=== PATIENT | male | born 1990 | race Caucasian/White ===

== ENCOUNTER 2016-05-14 18:03 | Emergency (ER) | payer SELFPAY ==
[2016-05-14 19:28] VITALS: BMI 35.2
[2016-05-14] MEDS ORDERED: Sodium Chloride 0.9% 1,000 ML IV STA (19:29)
--- NOTE | 2016-05-14 19:36 | ED PDOC ---
Arrival/HPI - General Historian: Patient <Spencer Guadarrama - Last Filed: 05/14/16 23:21> <Sp Nelson - Last Filed: 05/15/16 06:13> - General Chief Complaint: Abdominal Pain Time Seen by Provider: 05/14/16 18:05 - History of Present Illness Narrative History of Present Illness (Text): 05/14/16 19:32 25 y/o male, no pmh, nkda, c/o rt. flank and lower abdominal pain x 2 days. Pt. stated that he has rt. upper quadrant pain radiating to the rt. lower abdomen, aggravated by movement, no hematuria, no urinary symptoms, no dizziness, no night sweat, no palpitation, no headache, no rash, no fatigue or lethargic, no other medical or psychological complaints. (Spencer Guadarrama) Past Medical History - Provider Review Nursing Documentation Reviewed: Yes - Infectious Disease Hx of Infectious Diseases: None - Past Medical History Past Medical History: No Previous - Psychiatric Hx Depression: No Hx Substance Use: No - Surgical History Hx Appendectomy: Yes - Anesthesia Hx Anesthesia: No - Suicidal Assessment Feels Threatened In Home Enviroment: No <Spencer Guadarrama - Last Filed: 05/14/16 23:21> Family/Social History - Physician Review Nursing Documentation Reviewed: Yes Family/Social History: Unknown Family HX Smoking Status: Never Smoked Hx Alcohol Use: Yes Frequency of alcohol use: Socially Hx Substance Use: No <Spencer Guadarrama - Last Filed: 05/14/16 23:21> Family/Social History: No Known Family HX <Sp Nelson - Last Filed: 05/15/16 06:13> Allergies/Home Meds <Spencer Guadarrama - Last Filed: 05/14/16 23:21> <Sp Nelson - Last Filed: 05/15/16 06:13> Allergies/Adverse Reactions: Allergies No Known Allergies Allergy (Verified 05/14/16 19:08) Review of Systems - Review of Systems Constitutional: absent: Fatigue Eyes: absent: Vision Changes Respiratory: absent: SOB, Cough Cardiovascular: absent: Chest Pain Gastrointestinal: Abdominal Pain. absent: Nausea, Vomiting Musculoskeletal: Back Pain. absent: Arthralgias, Neck Pain, Joint Swelling, Myalgias Skin: absent: Rash, Pruritis Neurological: absent: Headache, Dizziness, Focal Weakness, Gait Changes, Speech Changes, Facial Droop, Disequilibrium, Seizure Psychiatric: absent: Anxiety, Depression, Suicidal Ideation <Spencer Guadarrama - Last Filed: 05/14/16 23:21> Physical Exam Pain Distress: Moderate - Systems Exam Head: Present: Atraumatic, Normocephalic Pupils: Present: PERRL Extroacular Muscles: Present: EOMI Conjunctiva: Present: Normal Mouth: Present: Moist Mucous Membranes Neck: Present: Normal Range of Motion Respiratory/Chest: Present: Clear to Auscultation, Good Air Exchange. No: Respiratory Distress, Accessory Muscle Use Cardiovascular: Present: Regular Rate and Rhythm, Normal S1, S2. No: Murmurs Abdomen: Present: Tenderness (+rt. upper quadrant. ), Normal Bowel Sounds. No: Distention, Peritoneal Signs, Rebound, Guarding Back: Present: Normal Inspection, CVA Tenderness (+rt. CVA tenderness) Upper Extremity: Present: Normal Inspection. No: Cyanosis, Edema Lower Extremity: Present: Normal Inspection. No: Edema Neurological: Present: GCS=15, CN II-XII Intact, Speech Normal Skin: Present: Warm, Dry, Normal Color. No: Rashes Psychiatric: Present: Alert, Oriented x 3, Normal Insight, Normal Concentration <Spnecer Guadarrama - Last Filed: 05/14/16 23:21> Vital Signs Temp Pulse Resp BP Pulse Ox 05/14/16 23:20 98.7 F 76 18 116/72 99 05/14/16 19:04 84 16 121/77 97 05/14/16 19:01 99.1 F Medical Decision Making - RAD Interpretation Co Founder And Cto: Radiologist <Spencer Guadarrama - Last Filed: 05/14/16 23:21> <Sp Nelson - Last Filed: 05/15/16 06:13> ED Course and Treatment: 05/14/16 19:37 -labs -CT abdominal, sonogram, chest x-ray -IVF/toradol -Observe and reassess 05/14/16 23:22 -CT abdomen show fatty hernia with no incarceration, no other active acute findings. -Gallbladder show no stone but there is fatty liver, advised the patient on low fat diet and stop drinking alcohol with outpatient GI follow up. -Chest x-ray show no active disease -Labs are non-significant with no elevation of wbc -UA show no acute findings. -Pain resolved with the IV medication. -I discussed all the labs and radiology results with the patient, advised outpatient GI and general surgeon follow up. -Discharge home with naproxen, follow up with your own pmd and GI/general surgeon within 2 days, return to the ER for any new or worsening signs or symptoms. (Spencer Guadarrama) - Lab Interpretations Lab Results: 05/14/16 20:15 05/14/16 20:15 Lab Results 05/14/16 22:50: Urine Color Yellow, Urine Appearance Clear, Urine pH 6.5, Ur Specific [place] 1.010, Urine Protein Negative, Urine Glucose (UA) Negative, Urine Ketones Negative, Urine Blood Negative, Urine Nitrate Negative, Urine Bilirubin Negative, Urine Urobilinogen 0.2, Ur Leukocyte Esterase Negative 05/14/16 20:15: WBC 9.3, RBC 4.86, Hgb 14.5, Hct 42.8, MCV 88.1, MCH 29.8, MCHC 33.9, RDW 12.5, Plt Count 213, MPV 9.6, Gran % 67.1, Lymph % (Auto) 25.1, [place] % (Auto) 5.5, Eos % (Auto) 2.1, Baso % (Auto) 0.2, Gran # 6.22, Lymph # 2.3, [place] # 0.5, Eos # 0.2, Baso # 0.02, Sodium 142, Potassium 4.3, Chloride 103, Carbon Dioxide 29, Anion Gap 14, BUN 13, Creatinine 0.9, Est GFR ( Amer) > 60, Est GFR (Non-Af Amer) > 60, Random Glucose 95, Calcium 9.1, Total Bilirubin 0.5, AST 40, ALT 56, Alkaline Phosphatase 105, Total Protein 7.6, Albumin 4.1, Globulin 3.5, Albumin/Globulin Ratio 1.2, Lipase 49 - RAD Interpretation Radiology Orders: 05/14/16 19:29 ABD & PELVIS IV CONTRAST ONLY [CT] Stat GALL BLADDER [US] Stat 05/14/16 19:30 CHEST ONE VIEW [RAD] Stat Gallbladder sonogram: FINDINGS: Liver: Fatty infiltration. No mass. No intrahepatic bile duct dilation. Gallbladder: Unremarkable. No gallstones. Common bile duct: Unremarkable as visualized. No stones. No dilation. Pancreas: Unremarkable as visualized. Right kidney: Unremarkable. No stones. No solid mass. No hydronephrosis. IMPRESSION: Fatty liver. Otherwise unremarkable exam. Thank you for allowing us to participate in the care of your patient. Dictated and Authenticated by: Maikel Benjamin MD 05/14/2016 9:39 PM Eastern Time ([employer] [facility] [employer]) CT Abdomen and pelvis ABDOMEN: Liver: unremarkable Gallbladder and bile ducts: unremarkable Pancreas: unremarkable Spleen: Spleen is unremarkable. There is an accessory spleen in the left upper quadrant. Adrenals: unremarkable Kidneys and ureters: unremarkable Stomach and bowel: Stomach is almost empty. Rotation is normal. There is no obstruction. There is mild fatty infiltration of the distal ileal wall. Appendix is absent. There is no pericecal inflammation.Colon is incompletely distended which limits evaluation.There is diverticulosis. Appendix: See stomach and bowel PELVIS: Bladder: unremarkable Reproductive: Seminal vesicles and prostate are unremarkable. ABDOMEN and PELVIS: Intraperitoneal space: There is no free air or free fluid. Bones/joints: There is L5 spondylolysis with grade 1-2 spondylolisthesis. There are degenerative changes L5/S1. There is small Schmorl's nodes at multiple levels. Soft tissues: There is a fat-containing umbilical hernia. Vasculature: Vascular structures are unremarkable. Lymph nodes: There is no pathologic adenopathy. IMPRESSION: No renal or ureteral stones or hydronephrosis; no acute solid visceral or bowel abnormality; minimal fatty infiltration of the terminal ileal wall suggest prior enteritis Additional findings as described above. Thank you for allowing us to participate in the care of your patient. Dictated and Authenticated by: Jaz Yap MD 05/14/2016 10:25 PM Eastern Time ([employer] [facility] [employer]) Chest x-ray (Spencer Guadarrama) - Medication Orders Current Medication Orders: Discontinued Medications Sodium Chloride (Sodium Chloride 0.9%) 1,000 mls @ 999 mls/hr IV .Q1H1M STA Stop: 05/14/16 20:29 Last Admin: 05/14/16 20:15 Dose: 999 MLS/HR eMAR Start Stop Document 05/14/16 20:15 [facility] [place] (Rec: 05/14/16 20:15 [place] [id number]) Intravenous Solution Start Date 05/14/16 Start Time 20:15 End Date 05/14/16 End time 21:15 Total Infusion Time 60 Iohexol (Omnipaque 350 100 Ml) Confirm Administered Dose 350 mg .ROUTE .STK-MED ONE Stop: 05/14/16 21:14 Ketorolac Tromethamine (Toradol) 30 mg IVP STAT STA Stop: 05/14/16 19:30 Last Admin: 05/14/16 20:15 Dose: 30 MG IVP Administration Document 05/14/16 20:15 [facility] [place] (Rec: 05/14/16 20:15 [place] [id number]) Charges for Administration # of IVP Administrations 1 - PA / BRANDING MACHINE TENDER / Resident Statement MILAGROS has reviewed & agrees with the documentation as recorded. <Spencer Guadarrama - Last Filed: 05/14/16 23:21> - PA / BRANDING MACHINE TENDER / Resident Statement MILAGROS has reviewed & agrees with the documentation as recorded. <Sp Nelson - Last Filed: 05/15/16 06:13> Disposition/Present on Arrival - Present on Arrival History of DVT/PE: No History of Uncontrolled Diabetes: No Urinary Catheter: No History of Decub. Ulcer: No History Surgical Site Infection Following: None - Disposition Disposition Time: 22:34 Patient Plan: Discharge <Spencer Guadarrama Marcelino - Last Filed: 05/14/16 23:21> - Present on Arrival Any Indicators Present on Arrival: No - Disposition Have Diagnosis and Disposition been Completed?: Yes <Sp Nelson - Last Filed: 05/15/16 06:13> - Disposition Diagnosis: Fatty liver, Hernia Disposition: HOME/ ROUTINE Condition: IMPROVED Additional Instructions: Discharge home with naproxen, follow up with your own pmd and GI/general surgeon within 2 days, return to the ER for any new or worsening signs or symptoms. Prescriptions: Naproxen 500 mg PO BID PRN #20 tab PRN Reason: Other Referrals: Rl Anaya, [Primary Care Provider] - Follow up with primary Avery Merchant MD [Staff Provider] - Follow up with primary Miracle SOLER,MD Mckenna [Medical Doctor] - Follow up with primary [facility] [place] [Outside] - Follow up with primary Forms: WORK NOTE
[2016-05-14 20:21] LABS: ADD MANUAL DIFF? NO
[2016-05-14 20:34] LABS: BASO # 0.02 K/mm3 (0.0-2.0); BASO % 0.2 % (0.0-3.0); EOS # 0.2 (0.0-0.7); EOS % 2.1 % (1.5-5.0); GRAN # 6.22 (1.4-6.5); GRAN % 67.1 % (50.0-68.0); HEMATOCRIT 42.8 % (42.0-52.0); LYMPH # 2.3 (1.2-3.4); LYMPH % 25.1 % (22.0-35.0); MEAN CELL VOLUME 88.1 fL (80.0-105.0); MEAN CORPUSCULAR HEMOGLOBIN 29.8 pg (25.0-35.0); MEAN CORPUSCULAR HGB CONC 33.9 g/dl (31.0-37.0); MEAN PLATELET VOLUME 9.6 fl (7.0-11.0); MONO # 0.5 (0.1-0.6); MONO % 5.5 % (1.0-6.0); PLATELET COUNT 213 10^3/uL (120.0-450.0); RED CELL DISTRIBUTION WIDTH 12.5 % (11.5-14.5); WHITE BLOOD COUNT 9.3 10^3/ul (4.5-11.0)
[2016-05-14 20:48] LABS: ALB/GLOB RATIO 1.2 (1.1-1.8); ALKALINE PHOSPHATASE 105 U/L (38-133); ALT/SGPT 56 U/L (7-56); AST/SGOT 40 U/L (15-59); BILIRUBIN,TOTAL 0.5 mg/dL (0.2-1.3); BLOOD UREA NITROGEN 13 mg/dL (7-21); CALCIUM 9.1 mg/dL (8.4-10.5); CARBON DIOXIDE 29 mmol/L (21-33); CHLORIDE 103 mmol/L (98-107); GFR AFRICAN-AMERICAN > 60; GLUCOSE,RANDOM 95 mg/dL (70-110); LIPASE 49 U/L (23-300); POTASSIUM 4.3 mmol/L (3.6-5.0); SODIUM 142 mmol/L (132-148); TOTAL PROTEIN 7.6 g/dL (5.8-8.3)
[2016-05-14] MEDS ORDERED: Iohexol 350 MG/100 ML VIAL ONE (21:13)
--- NOTE | 2016-05-14 22:25 | CT ---
EXAM: CT Abdomen and Pelvis With Intravenous Contrast. CLINICAL HISTORY: 25 years old, male; Pain; Abdominal pain; Flank; Right; Prior surgery; Surgery date: 6+ months; Surgery type: Ap, hernia repair; Additional info: Rt. Flank and lower abdominal pain TECHNIQUE: Axial computed tomography images of the abdomen and pelvis with intravenous contrast. This CT exam was performed using one or more of the following dose reduction techniques: automated exposure control, adjustment of the mA and/or kV according to patient size, and/or use of iterative reconstruction technique. Coronal and sagittal reformatted images were created and reviewed. CONTRAST: 95 mL of OMNI 350 administered intravenously. EXAM DATE/TIME: 05/14/2016 7:29 PM COMPARISON: There are no prior studies for comparison. FINDINGS: Lower thorax: Heart size is normal. There is atelectasis and scarring at the lung bases. ABDOMEN: Liver: unremarkable Gallbladder and bile ducts: unremarkable Pancreas: unremarkable Spleen: Spleen is unremarkable. There is an accessory spleen in the left upper quadrant. Adrenals: unremarkable Kidneys and ureters: unremarkable Stomach and bowel: Stomach is almost empty. Rotation is normal. There is no obstruction. There is mild fatty infiltration of the distal ileal wall. Appendix is absent. There is no pericecal inflammation.Colon is incompletely distended which limits evaluation.There is diverticulosis. Appendix: See stomach and bowel PELVIS: Bladder: unremarkable Reproductive: Seminal vesicles and prostate are unremarkable. ABDOMEN and PELVIS: Intraperitoneal space: There is no free air or free fluid. Bones/joints: There is L5 spondylolysis with grade 1-2 spondylolisthesis. There are degenerative changes L5/S1. There is small Schmorl's nodes at multiple levels. Soft tissues: There is a fat-containing umbilical hernia. Vasculature: Vascular structures are unremarkable. Lymph nodes: There is no pathologic adenopathy. IMPRESSION: No renal or ureteral stones or hydronephrosis; no acute solid visceral or bowel abnormality; minimal fatty infiltration of the terminal ileal wall suggest prior enteritis Additional findings as described above.
[2016-05-14 23:05] LABS: PH,URINE 6.5 (4.7-8.0); URINE BILIRUBIN NEGATIVE (NEGATIVE); URINE BLOOD NEGATIVE (NEGATIVE); URINE GLUCOSE (UA) NEGATIVE (NEGATIVE); URINE KETONE NEGATIVE (NEGATIVE); URINE LEUKOCYTE ESTERASE NEGATIVE Leu/uL (NEGATIVE); URINE PROTEIN NEGATIVE mg/dL (<30 mg/dL); URINE UROBILINOGEN 0.2 E.U./dL (<1 E.U./dL)
[2016-05-14 23:14] LABS: URINE APPEARANCE CLEAR (CLEAR); URINE COLOR YELLOW (YELLOW)
[2016-05-15 02:26] VITALS: BP 116/72; PULSE 76; RESP 18; TEMP 98.7; O2SAT 99
--- NOTE | 2016-05-15 08:03 | US ---
HISTORY: Right flank pain. COMPARISON: May 14, 2016. CT abdomen and pelvis. TECHNIQUE: Sonographic evaluation of the right upper quadrant of the abdomen. FINDINGS: LIVER: Measures 14.6 cm in length. Hepatopedal blood flow. Fatty infiltration manifest ultrasonographically as increased echogenicity of the liver parenchyma. No mass. No intrahepatic bile duct dilatation. GALLBLADDER: Unremarkable. No gallstones. COMMON BILE DUCT: Measures 4.3 mm. No stones. No dilatation. PANCREAS: Unremarkable as visualized. No mass. No ductal dilatation. RIGHT KIDNEY: Measures 9.5 x 6.1 cm in length. Normal echogenicity. No calculus, mass, or hydronephrosis. AORTA: No aneurysmal dilatation. IVC: Unremarkable. OTHER FINDINGS: None . IMPRESSION: No acute findings related to/accounting for the clinical presentation. Additional benign and/or incidental findings described above.
--- NOTE | 2016-05-15 08:42 | RAD ---
PROCEDURE: CHEST RADIOGRAPH, 1 VIEW HISTORY: medical clearance COMPARISON: Comparison is made to the previous study dated 02/06/2016 FINDINGS: LUNGS: No evidence of new infiltrate or consolidation in the lungs. PLEURA: No pneumothorax or pleural fluid seen. CARDIOVASCULAR: Normal. OSSEOUS STRUCTURES: No significant abnormalities. VISUALIZED UPPER ABDOMEN: Normal. OTHER FINDINGS: None. IMPRESSION: No active disease.
== END 2016-05-14 23:30 | disposition home or self-care (01) ==
LOC: ED 18:03
DX: K76.0 Fatty (change of) liver, not elsewhere classified (principal); K42.9 Umbilical hernia without obstruction or gangrene
CPT/HCPCS: 71010; 74177; 76705; 80053; 81003; 83690; 85025; 96361; 96374; 99284; J1885; J7040; Q9967

== ENCOUNTER 2016-07-18 13:39 | Emergency (ER) | payer MEDICAID, OTHER ==
[2016-07-18 13:39] VITALS: BMI 35.2
[2016-07-18 13:58] VITALS: TEMP 98.1
[2016-07-18 14:28] LABS: ADD MANUAL DIFF? NO
[2016-07-18 14:29] LABS: URINE APPEARANCE CLEAR (CLEAR); URINE BILIRUBIN NEGATIVE (NEGATIVE); URINE BLOOD NEGATIVE (NEGATIVE); URINE COLOR YELLOW (YELLOW); URINE GLUCOSE (UA) NEGATIVE (NEGATIVE); URINE KETONE NEGATIVE (NEGATIVE); URINE LEUKOCYTE ESTERASE NEGATIVE Leu/uL (NEGATIVE); URINE PROTEIN NEGATIVE mg/dL (<30 mg/dL); URINE UROBILINOGEN 0.2 E.U./dL (<1 E.U./dL)
[2016-07-18 14:35] LABS: BASO # 0.03 K/mm3 (0.0-2.0); BASO % 0.5 % (0.0-3.0); EOS # 0.1 (0.0-0.7); EOS % 1.5 % (1.5-5.0); GRAN % 61.2 % (50.0-68.0); HEMATOCRIT 42.5 % (42.0-52.0); LYMPH # 1.9 (1.2-3.4); MEAN CORPUSCULAR HEMOGLOBIN 30.4 pg (25.0-35.0); MEAN CORPUSCULAR HGB CONC 35.8 g/dl (31.0-37.0); MEAN PLATELET VOLUME 9.5 fl (7.0-11.0); MONO # 0.4 (0.1-0.6); MONO % 5.8 % (1.0-6.0); PLATELET COUNT 220 10^3/uL (120.0-450.0); RED CELL DISTRIBUTION WIDTH 12.5 % (11.5-14.5)
[2016-07-18 14:49] LABS: ALB/GLOB RATIO 1.3 (1.1-1.8); ALKALINE PHOSPHATASE 95 U/L (38-133); ALT/SGPT 46 U/L (7-56); AST/SGOT 31 U/L (15-59); BILIRUBIN,TOTAL 0.6 mg/dL (0.2-1.3); BLOOD UREA NITROGEN 12 mg/dL (7-21); CALCIUM 9.3 mg/dL (8.4-10.5); CARBON DIOXIDE 25 mmol/L (21-33); CHLORIDE 105 mmol/L (98-107); GFR AFRICAN-AMERICAN > 60; GLUCOSE,RANDOM 126 mg/dL (70-110); MAGNESIUM 1.8 mg/dL (1.7-2.2); POTASSIUM 3.8 mmol/L (3.6-5.0); SODIUM 138 mmol/L (132-148); TOTAL PROTEIN 7.4 g/dL (5.8-8.3)
--- NOTE | 2016-07-18 14:57 | RAD ---
HISTORY: chest pain COMPARISON: 05/14/2016 FINDINGS: LUNGS: No active pulmonary disease. PLEURA: No significant pleural effusion identified, no pneumothorax apparent. CARDIOVASCULAR: Normal. OSSEOUS STRUCTURES: No significant abnormalities. VISUALIZED UPPER ABDOMEN: Normal. OTHER FINDINGS: None. IMPRESSION: No active disease.
[2016-07-18 15:00] LABS: TROPONIN I < 0.01 ng/mL
[2016-07-18 16:15] VITALS: RESP 16; O2SAT 100
--- NOTE | 2016-07-18 16:38 | ED PDOC ---
Arrival/HPI - General Chief Complaint: Chest Pain Time Seen by Provider: 07/18/16 14:09 Historian: Patient - History of Present Illness Narrative History of Present Illness (Text): 07/18/16 16:43 25 year old male presents to the emergency department with intermittent chest pain for the past couple of years. Patient states he has had this evaluated in the ER multiple times. Currently patient is pain free. Never had shortness of breath. Patient reports cough, no phlegm. No fever, no recent travel. No family cardiac history. Time/Duration: Other (> years) Symptom Onset: Gradual Symptom Course: Intermittent Modifying Factors (Text): None Associated Symptoms (Text): None Past Medical History - Provider Review Nursing Documentation Reviewed: Yes - Infectious Disease Hx of Infectious Diseases: None - Past Medical History Past Medical History: No Previous - Cardiac Hx Cardiac Disorders: No - Psychiatric Hx Depression: No Hx Substance Use: Yes - Surgical History Hx Appendectomy: Yes - Anesthesia Hx Anesthesia: Yes Hx Anesthesia Reactions: No Hx Malignant Hyperthermia: No - Suicidal Assessment Feels Threatened In Home Enviroment: No Family/Social History - Physician Review Nursing Documentation Reviewed: Yes Family/Social History: Unknown Family HX Smoking Status: Never Smoked Hx Alcohol Use: Yes Hx Substance Use: Yes Allergies/Home Meds Allergies/Adverse Reactions: Allergies No Known Allergies Allergy (Verified 07/18/16 14:06) Review of Systems - Physician Review All systems were reviewed & negative as marked: Yes - Review of Systems Constitutional: absent: Fevers Respiratory: Cough. absent: SOB, Sputum Cardiovascular: Chest Pain (resolved) Physical Exam Vital Signs Reviewed: Yes Vital Signs Temp Pulse Pulse Resp BP BP Pulse Ox 07/18/16 16:15 71 16 127/71 100 07/18/16 16:14 70 16 132/73 100 07/18/16 15:01 71 18 133/71 97 07/18/16 13:57 98.1 F 76 18 135/76 97 07/18/16 13:53 76 135/76 Temperature: Afebrile Blood Pressure: Normal Pulse: Regular Respiratory Rate: Normal Appearance: Positive for: Well-Appearing, Non-Toxic, Comfortable Pain Distress: None Mental Status: Positive for: Alert and Oriented X 3 - Systems Exam Head: Present: Atraumatic, Normocephalic Pupils: Present: PERRL Extroacular Muscles: Present: EOMI Conjunctiva: Present: Normal Mouth: Present: Moist Mucous Membranes Neck: Present: Normal Range of Motion Respiratory/Chest: Present: Clear to Auscultation, Good Air Exchange. No: Respiratory Distress, Accessory Muscle Use Cardiovascular: Present: Regular Rate and Rhythm, Normal S1, S2. No: Murmurs Abdomen: Present: Normal Bowel Sounds. No: Tenderness, Distention, Peritoneal Signs Back: Present: Normal Inspection Upper Extremity: Present: Normal Inspection. No: Cyanosis, Edema Lower Extremity: Present: Normal Inspection. No: Edema Neurological: Present: GCS=15, CN II-XII Intact, Speech Normal Skin: Present: Warm, Dry, Normal Color. No: Rashes Psychiatric: Present: Alert, Oriented x 3, Normal Insight, Normal Concentration Medical Decision Making ED Course and Treatment: Impression: 25 year old male presents to the emergency department with intermittent chest pain for the past couple of years. Differential Diagnosis included but are not limited to: Nonspecific chest pain Plan: -- EKG, Chest X-ray -- Toradol -- Labs -- Reassess and disposition Prior Visits: Notes and results from previous visits were reviewed. Patient last seen in the ED on 05/14/16 for abdominal pain and discharged home. Progress Notes: Patient states he feels better after pain medication. Patient is stable for discharge. Patient was instructed to follow up with physician/clinic in 1-2 days or return if symptoms persist/worsen or new concerning symptoms arise. - Lab Interpretations Lab Results: 07/18/16 13:54 07/18/16 13:54 Lab Results 07/18/16 15:30: Urine Opiates Screen Negative, Urine Methadone Screen Negative, Ur Barbiturates Screen Negative, Ur Phencyclidine Scrn Negative, Ur Amphetamines Screen Negative, U Benzodiazepines Scrn Negative, U Oth Cocaine Metabols Negative, U Cannabinoids Screen Negative 07/18/16 14:15: Urine Color Yellow, Urine Appearance Clear, Urine pH 6.0, Ur Specific [place] 1.025, Urine Protein Negative, Urine Glucose (UA) Negative, Urine Ketones Negative, Urine Blood Negative, Urine Nitrate Negative, Urine Bilirubin Negative, Urine Urobilinogen 0.2, Ur Leukocyte Esterase Negative 07/18/16 13:54: Sodium 138, Potassium 3.8, Chloride 105, Carbon Dioxide 25, Anion Gap 12, BUN 12, Creatinine 0.8, Est GFR ( Amer) > 60, Est GFR (Non- Af Amer) > 60, Random Glucose 126 H, Calcium 9.3, Magnesium 1.8, Total Bilirubin 0.6, AST 31, ALT 46, Alkaline Phosphatase 95, Lactate Dehydrogenase 398, Total Creatine Kinase 103, Troponin I < 0.01, Total Protein 7.4, Albumin 4.2, Globulin 3.2, Albumin/Globulin Ratio 1.3 07/18/16 13:54: WBC 6.0 D, RBC 5.00, Hgb 15.2, Hct 42.5, MCV 85.0, MCH 30.4, MCHC 35.8, RDW 12.5, Plt Count 220, MPV 9.5, Gran % 61.2, Lymph % (Auto) 31.0, [place] % (Auto) 5.8, Eos % (Auto) 1.5, Baso % (Auto) 0.5, Gran # 3.70, Lymph # 1.9 , [place] # 0.4, Eos # 0.1, Baso # 0.03 - RAD Interpretation Radiology Orders: 07/18/16 14:15 CHEST PORTABLE [RAD] Stat - EKG Interpretation EKG Interpretation (Text): EKG shows NSR at 92 BPM, otherwise normal, interpreted by me. Interpreted by ED Physician: Yes Type: 12 lead EKG - Medication Orders Current Medication Orders: Discontinued Medications Ketorolac Tromethamine (Toradol) 30 mg IVP STAT STA Stop: 07/18/16 14:16 Last Admin: 07/18/16 14:20 Dose: 30 mg - Scribe Statement The provider has reviewed the documentation as recorded by the Jaspreet Mccallum Provider Scribe Attestation: All medical record entries made by the Jaspreet were at my direction and personally dictated by me. I have reviewed the chart and agree that the record accurately reflects my personal performance of the history, physical exam, medical decision making, and the department course for this patient. I have also personally directed, reviewed, and agree with the discharge instructions and disposition. Disposition/Present on Arrival - Present on Arrival Any Indicators Present on Arrival: No History of DVT/PE: No History of Uncontrolled Diabetes: No Urinary Catheter: No History of Decub. Ulcer: No History Surgical Site Infection Following: None - Disposition Have Diagnosis and Disposition been Completed?: Yes Diagnosis: Non-cardiac chest pain Disposition: HOME/ ROUTINE Disposition Time: 15:10 Condition: GOOD Discharge Instructions (ExitCare): Chest Pain (ED) Additional Instructions: Thank you for letting us take care of you today. Your provider was Dr. Sigala. You were treated for non-cardiac chest pain. The emergency medical care you received today was directed at your acute symptoms. If you were prescribed any medication, please fill it and take as directed. It may take several days for your symptoms to resolve. Return to the Emergency Department if your symptoms worsen, do not improve, or if you have any other problems. Please contact your doctor or call one of the physicians/clinics you have been referred to that are listed on the Patient Visit Information form that is included in your discharge packet. Bring any paperwork you were given at discharge with you along with any medications you are taking to your follow up visit. Our treatment cannot replace ongoing medical care by a primary care provider (PCP) outside of the emergency department. Thank you for allowing the [facility] team to be part of your care today. Follow up with the clinic in 3-4 days for re-evaluation. Prescriptions: Ibuprofen [Motrin] 600 mg PO Q6 PRN #20 tab PRN Reason: Pain, Moderate (4-7) Referrals: [facility] [Outside] - Follow up with primary [facility] [Outside] - Follow up with primary PCP,NO [Primary Care Provider] - Follow up with primary
[2016-07-18 16:51] VITALS: BP 127/71; PULSE 71
--- NOTE | 2016-07-19 14:14 | CARD ---
APPROVED REPORT EKG Measurement Heart [id number] <Conclusion> Normal sinus rhythm Normal ECG
== END 2016-07-18 16:30 | disposition home or self-care (01) ==
LOC: ED 13:39
DX: R07.89 Other chest pain (principal)
CPT/HCPCS: 71010; 80053; 81003; 82550; 83615; 83735; 84484; 85025; 93005; 96374; 99285; G0480; J1885

== ENCOUNTER 2017-12-13 12:41 | Emergency (ER) | payer MEDICAID, OTHER ==
[2017-12-13 12:41] VITALS: BMI 35.2
[2017-12-13 12:49] VITALS: RESP 18
[2017-12-13] MEDS ORDERED: Acetaminophen 650mg/20.3ml solution UD PO STA (12:59)
--- NOTE | 2017-12-13 13:02 | ED PDOC ---
Arrival/HPI - General Chief Complaint: Flu-like Symptoms Time Seen by Provider: 12/13/17 12:42 Historian: Patient - History of Present Illness Narrative History of Present Illness (Text): 12/13/17 13:00 A 27 year old male, whose past medical history includes GERD, presents to the emergency department complaining of fever starting last night at approximately 01:00. Patient reports also experiencing mild coughing, nausea, sore throat, and chills. States he checked for fever and it measured at over 100. Patient took DayQuil last night,Patient denies any other complaints at this time. No PMD 12/13/17 14:56 Time/Duration: Other (last night at 01:00) Past Medical History - Provider Review Nursing Documentation Reviewed: Yes - Infectious Disease Hx of Infectious Diseases: None - Past Medical History Past Medical History: No Previous - Cardiac Hx Cardiac Disorders: No - Psychiatric Hx Depression: No Hx Substance Use: Yes - Surgical History Hx Appendectomy: Yes - Anesthesia Hx Anesthesia: Yes Hx Anesthesia Reactions: No Hx Malignant Hyperthermia: No - Suicidal Assessment Feels Threatened In Home Enviroment: No Family/Social History - Physician Review Nursing Documentation Reviewed: Yes Family/Social History: No Known Family HX Smoking Status: Never Smoked Hx Alcohol Use: Yes Frequency of alcohol use: Socially Hx Substance Use: Yes Allergies/Home Meds Allergies/Adverse Reactions: Allergies No Known Allergies Allergy (Verified 12/13/17 12:49) Review of Systems - Physician Review All systems were reviewed & negative as marked: Yes - Review of Systems Constitutional: Fevers, Night Sweats, Other (generalized weakness) ENT: Sore Throat Respiratory: Cough (mild) Gastrointestinal: Nausea. absent: Vomiting Physical Exam Vital Signs Reviewed: Yes Vital Signs Temp Pulse Resp BP Pulse Ox 12/13/17 12:46 101.9 F H 124 H 18 96/40 L 100 Temperature: Febrile Blood Pressure: Normal Pulse: Regular Respiratory Rate: Normal Appearance: Positive for: Well-Appearing, Non-Toxic, Comfortable Pain Distress: None Mental Status: Positive for: Alert and Oriented X 3 - Systems Exam Head: Present: Atraumatic, Normocephalic Pupils: Present: PERRL Extroacular Muscles: Present: EOMI Conjunctiva: Present: Normal Mouth: Present: Moist Mucous Membranes Pharnyx: Present: ERYTHEMA. No: EXUDATE Neck: Present: Normal Range of Motion Respiratory/Chest: Present: Clear to Auscultation, Good Air Exchange. No: Respiratory Distress, Accessory Muscle Use Cardiovascular: Present: Regular Rate and Rhythm, Normal S1, S2. No: Murmurs Abdomen: No: Tenderness, Distention, Peritoneal Signs Back: Present: Normal Inspection Upper Extremity: Present: Normal Inspection. No: Cyanosis, Edema Lower Extremity: Present: Normal Inspection. No: Edema Neurological: Present: GCS=15, CN II-XII Intact, Speech Normal Skin: Present: Warm, Dry, Normal Color. No: Rashes Psychiatric: Present: Alert, Oriented x 3, Normal Insight, Normal Concentration Medical Decision Making ED Course and Treatment: 12/13/17 13:03 Impression: 27 year old male with fever, mild cough, weakness, chills, nausea, sore throat. Physical exam shows erythema and no exudates; no other acute findings on examination. Plan: -- Tylenol -- Rapid Strep Test -- Rapid Flu Test -- Reassess and disposition Prior Visits: Notes and results from previous visits were reviewed. Patient was last seen here in the emergency department on 07/18/2016 for intermittent chest pain. Patient was discharged. Progress Notes: 12/13/17 14:56 pt reassesed strep posirtive. additonal motrin dosed. pt observed in nad. on phone. - Lab Interpretations I have reviewed the lab results: Yes - Medication Orders Current Medication Orders: Discontinued Medications Acetaminophen (Tylenol 325mg Tab) 975 mg PO STAT STA Stop: 12/13/17 12:54 - Scribe Statement The provider has reviewed the documentation as recorded by the Jaspreet Persaud Provider Scribe Attestation: All medical record entries made by the Robinaibmagen were at my direction and personally dictated by me. I have reviewed the chart and agree that the record accurately reflects my personal performance of the history, physical exam, medical decision making, and the department course for this patient. I have also personally directed, reviewed, and agree with the discharge instructions and di sposition. Disposition/Present on Arrival - Present on Arrival Any Indicators Present on Arrival: No History of DVT/PE: No History of Uncontrolled Diabetes: No Urinary Catheter: No History of Decub. Ulcer: No History Surgical Site Infection Following: None - Disposition Have Diagnosis and Disposition been Completed?: Yes Diagnosis: Strep throat Disposition: HOME/ ROUTINE Disposition Time: 02:00 Condition: STABLE Discharge Instructions (ExitCare): Strep Throat (DC) Additional Instructions: follow up with your doctor/clinic. return to er with worsening symptoms or concerns. Prescriptions: RX: Amoxicillin 500 mg PO TID #1 susp.recon RX: Amoxicillin 500 mg PO TID #30 tab Referrals: [facility] [Outside] - Follow up with primary [facility] [Outside] - Follow up with primary Forms: [employer] (Polish), WORK NOTE
[2017-12-13] MEDS ORDERED: Amoxicillin 250 mg/5 ml Susp (150 ml) PO STA (13:52)
[2017-12-13 14:44] VITALS: BP 108/80; PULSE 98; TEMP 99.9; O2SAT 99
== END 2017-12-13 14:44 | disposition home or self-care (01) ==
LOC: ED 12:41
DX: J02.0 Streptococcal pharyngitis (principal)

== ENCOUNTER 2018-05-20 21:17 | Emergency (ER) | payer OTHER ==
[2018-05-20 21:17] VITALS: BMI 35.2
[2018-05-20 21:30] VITALS: TEMP 98.5
[2018-05-20 22:35] LABS: BASO # 0.04 K/mm3 (0.0-2.0); BASO % 0.4 % (0.0-3.0); EOS # 0.3 (0.0-0.7); EOS % 2.7 % (1.5-5.0); HEMOGLOBIN 14.8 g/dL (14.0-18.0); LYMPH # 3.2 (1.2-3.4); MEAN CELL VOLUME 87.2 fl (80.0-105.0); MEAN CORPUSCULAR HEMOGLOBIN 29.6 pg (25.0-35.0); MEAN CORPUSCULAR HGB CONC 33.9 g/dl (31.0-37.0); MEAN PLATELET VOLUME 10.1 fl (7.0-11.0); MONO # 0.7 (0.1-0.6); MONO % 7.2 % (1.0-6.0); RED CELL DISTRIBUTION WIDTH 12.7 % (11.5-14.5); WHITE BLOOD COUNT 9.9 10^3/uL (4.5-11.0)
[2018-05-20 23:44] LABS: ALB/GLOB RATIO 1.1 (1.1-1.8); ALBUMIN 3.9 g/dL (3.0-4.8); ALT/SGPT 22 U/L (7-56); AST/SGOT 27 U/L (17-59); BLOOD UREA NITROGEN 15 mg/dL (7-21); CALCIUM 8.9 mg/dL (8.4-10.5); GFR NON-AFRICAN AMERICAN > 60; LIPASE 56 U/L (23-300)
[2018-05-20 23:54] LABS: TROPONIN I < 0.01 ng/mL
[2018-05-21] MEDS ORDERED: Iohexol 350 MG/100 ML VIAL ONE (00:13)
[2018-05-21 00:18] LABS: PH,URINE 6.5 (4.7-8.0); URINE BILIRUBIN NEGATIVE (NEGATIVE); URINE BLOOD NEGATIVE (NEGATIVE); URINE GLUCOSE (UA) NEGATIVE (NEGATIVE); URINE LEUKOCYTE ESTERASE NEGATIVE Leu/uL (NEGATIVE); URINE PROTEIN TRACE mg/dL (<30 mg/dL); URINE UROBILINOGEN 0.2 E.U./dL (<1 E.U./dL)
[2018-05-21 00:21] LABS: URINE APPEARANCE CLEAR (CLEAR); URINE COLOR YELLOW (YELLOW)
[2018-05-21 00:36] LABS: URINE EPITHELIAL CELLS 0 - 2 /hpf (0-5); URINE RBC 0 - 2 /hpf (0-2); URINE WBC 0 - 2 /hpf (0-6)
--- NOTE | 2018-05-21 00:39 | ED PDOC ---
Arrival/HPI <Sp Nelson - Last Filed: 05/21/18 01:42> - General Historian: Patient - History of Present Illness Narrative History of Present Illness (Text): 05/20/18 22:10 27 year old male presents to the emergency department with sudden onset of epigastric pain that radiates into the chest associated with feeling like he could not catch his breath. He says he's been having these symptoms occasionally for the past couple of months. He says the symptoms usually occurs when he's leaning over which usually resolves within seconds, but this time it took a good 20 seconds to go away. Patient denies any history of smoking or NSAID use. Patient denies any recent travel. Patient denies any nausea, vomiting, back pain, complaints at present time, or any other complaints. Time/Duration: Other (past couple of months) Symptom Onset: Sudden Activities at Onset: Light Context: Home <Gely Aldridge - Last Filed: 05/21/18 02:14> - General Chief Complaint: Abdominal Pain Time Seen by Provider: 05/20/18 21:19 Past Medical History - Provider Review Nursing Documentation Reviewed: Yes - Infectious Disease Hx of Infectious Diseases: None - Past Medical History Past Medical History: No Previous - Cardiac Hx Cardiac Disorders: No - Pulmonary Hx Respiratory Disorders: No - Neurological Hx Neurological Disorder: No - HEENT Hx HEENT Disorder: No - Renal Hx Renal Disorder: No - Endocrine/Metabolic Hx Endocrine Disorders: No - Hematological/Oncological Hx Blood Disorders: No - Integumentary Hx Dermatological Disorder: No - Musculoskeletal/Rheumatological Hx Musculoskeletal Disorders: No - Gastrointestinal Hx Gastrointestinal Disorders: No - Genitourinary/Gynecological Hx Genitourinary Disorders: No - Psychiatric Hx Psychophysiologic Disorder: No Hx Substance Use: Yes - Surgical History Hx Appendectomy: Yes - Anesthesia Hx Anesthesia: Yes Hx Anesthesia Reactions: No Hx Malignant Hyperthermia: No - Suicidal Assessment Feels Threatened In Home Enviroment: No <Gely Aldridge - Last Filed: 05/21/18 02:14> Family/Social History - Physician Review Nursing Documentation Reviewed: Yes Family/Social History: No Known Family HX Smoking Status: Never Smoked Hx Alcohol Use: Yes Hx Substance Use: Yes <Gely Aldridge - Last Filed: 05/21/18 02:14> Allergies/Home Meds <Sp Nelson - Last Filed: 05/21/18 01:42> <Gely Aldridge - Last Filed: 05/21/18 02:14> Allergies/Adverse Reactions: Allergies No Known Allergies Allergy (Verified 12/13/17 12:49) Review of Systems - Physician Review All systems were reviewed & negative as marked: Yes - Review of Systems Constitutional: absent: Fatigue, Fevers ENT: absent: Sore Throat, Sinus Congestion Respiratory: SOB. absent: Cough, Sputum, Wheezing Cardiovascular: Chest Pain. absent: Palpitations, Orthopnea Gastrointestinal: Abdominal Pain. absent: Constipation, Diarrhea, Nausea, Vomiting, Appetite Changes, Hematochezia, Hematemesis Genitourinary Male: absent: Dysuria, Frequency Musculoskeletal: absent: Arthralgias, Back Pain, Neck Pain Skin: absent: Rash, Pruritis Neurological: absent: Headache, Dizziness Psychiatric: absent: Anxiety, Depression <Gely Aldridge T - Last Filed: 05/21/18 02:14> Physical Exam Vital Signs Temp Pulse Resp BP Pulse Ox 05/20/18 21:22 98.5 F 106 H 19 146/85 95 <Sp Nelson - Last Filed: 05/21/18 01:42> Vital Signs Reviewed: Yes Vital Signs Temp Pulse Resp BP Pulse Ox 05/20/18 21:22 98.5 F 106 H 19 146/85 95 Temperature: Afebrile Blood Pressure: Hypertensive Pulse: Tachycardic Respiratory Rate: Normal Appearance: Positive for: Well-Appearing, Non-Toxic, Comfortable Pain Distress: None Mental Status: Positive for: Alert and Oriented X 3 - Systems Exam Head: Present: Atraumatic Mouth: Present: Moist Mucous Membranes Neck: Present: Normal Range of Motion Respiratory/Chest: Present: Clear to Auscultation, Good Air Exchange. No: Respiratory Distress, Accessory Muscle Use Cardiovascular: Present: Regular Rate and Rhythm, Normal S1, S2. No: Murmurs Abdomen: Present: Normal Bowel Sounds. No: Tenderness, Distention, Peritoneal Signs, Rebound, Guarding Back: Present: Normal Inspection. No: CVA Tenderness, Midline Tenderness, Paraspinal Tenderness Upper Extremity: Present: Normal Inspection, Normal ROM. No: Cyanosis, Edema Lower Extremity: Present: Normal Inspection, Normal ROM. No: Edema Neurological: Present: GCS=15, Speech Normal Skin: Present: Warm, Dry, Normal Color. No: Rashes Psychiatric: Present: Alert, Oriented x 3 <Azoia,Gely T - Last Filed: 05/21/18 02:14> Medical Decision Making - Lab Interpretations Lab Results: D-Dimer, Quantitative 263 ng/mlDDU (0-243) H 05/20/18 23:18 Troponin I < 0.01 ng/mL 05/20/18 23:18 Total Bilirubin 0.3 mg/dL (0.2-1.3) 05/20/18 23:18 AST 27 U/L (17-59) 05/20/18 23:18 ALT 22 U/L (7-56) 05/20/18 23:18 Alkaline Phosphatase 85 U/L (38-126) 05/20/18 23:18 Total Protein 7.5 g/dL (5.8-8.3) 05/20/18 23:18 Albumin 3.9 g/dL (3.0-4.8) 05/20/18 23:18 Globulin 3.6 gm/dL 05/20/18 23:18 Albumin/Globulin Ratio 1.1 (1.1-1.8) 05/20/18 23:18 Lipase 56 U/L (23-300) 05/20/18 23:18 Urine Color Yellow (YELLOW) 05/20/18 23:41 Urine Appearance Clear (CLEAR) 05/20/18 23:41 Urine pH 6.5 (4.7-8.0) 05/20/18 23:41 Ur Specific [place] 1.025 (1.005-1.035) 05/20/18 23:41 Urine Protein Trace mg/dL (<30 mg/dL) H 05/20/18 23:41 Urine Glucose (UA) Negative mg/dL (NEGATIVE) 05/20/18 23:41 Urine Ketones Trace mg/dL (NEGATIVE) H 05/20/18 23:41 Urine Blood Negative (NEGATIVE) 05/20/18 23:41 Urine Nitrate Negative (NEGATIVE) 05/20/18 23:41 Urine Bilirubin Negative (NEGATIVE) 05/20/18 23:41 Urine Urobilinogen 0.2 E.U./dL (<1 E.U./dL) 05/20/18 23:41 Ur Leukocyte Esterase Negative [place]/uL (NEGATIVE) 05/20/18 23:41 Urine RBC 0 - 2 /hpf (0-2) 05/20/18 23:41 Urine WBC 0 - 2 /hpf (0-6) 05/20/18 23:41 Ur Epithelial Cells 0 - 2 /hpf (0-5) 05/20/18 23:41 Urine Bacteria None /hpf (NONE) 05/20/18 23:41 - RAD Interpretation Radiology Orders: 05/20/18 22:14 CHEST PORTABLE [RAD] Stat 05/21/18 00:02 ANGIO CHEST PE PROTOCOL [CT] Stat - Medication Orders Current Medication Orders: Discontinued Medications Pantoprazole Sodium (Protonix Inj) 40 mg IVP STAT STA Stop: 05/21/18 00:02 Last Admin: 05/21/18 00:34 Dose: 40 mg IVP Administration Document 05/21/18 00:34 AD (Rec: 05/21/18 00:34 AD [id number]) Charges for Administration # of IVP Administrations 1 <Sp Nelson - Last Filed: 05/21/18 01:42> ED Course and Treatment: 05/20/18 22:10 Impression: 27 year old male presents complaining of sudden onset of epigastric pain that radiates into the chest associated with feeling like he could not catch his ella ath for the which he experiences occasionally for past couple of months. Plan: -- CT Angio Chest PE protocol -- EKG -- Labs -- Chest X-ray -- Protonix Inj -- Urinalysis w/ micro -- Reassess and disposition Prior Visits: Notes and results from previous visits were reviewed. Progress Notes: 05/21/18 02:08 CBC within normal limits CMP within normal limits Lipase within normal limits Troponin negative chest x-ray shows no infiltrate or effusion no cardiomegaly EKG shows normal sinus rhythm at 89 bpm normal axis normal intervals no ST elevations Elevated d-dimer at 263 CT angio: FINDINGS: Normal enhancement of the main pulmonary artery and right and left pulmonary arteries. Normal enhancement of the bilateral peripheral pulmonary arteries. There is no demonstrated pulmonary embolism. Normal thoracic aorta and visualized great vessels. There is no demonstrated aortic dissection. Normal heart and pericardium. Normal mediastinum. Normal hilar regions. Normal visualized trachea and bronchi. The lungs are well expanded. Normal pulmonary parenchyma. Normal pleura. Normal chest wall structures. Normal osseous structures. Normal visualized upper abdomen. IMPRESSION: Normal CTA chest examination, without a demonstrated pulmonary embolism or arterial dissection. Electronically signed on May 21, 2018 2:00:22 AM EDT by: Ashley Cedillo M.D., Certified by ABR, MSK, Neuroradiology Patient reassessment: Patient is nontoxic well-appearing in no distress with stable vital signs he denies any complaints at present time. I discussed all results in depth with the patient and advised follow-up with a GI doctor and the technical engineer within the next 2 days. Of advised taking Pepcid once daily 30 minutes before breakfast. Of advised immediate return if symptoms worsen persist or if new concerning symptoms develop Patient verbalizes understanding of discharge instructions and need for immediate followup. All aspects of this case were discussed the attending of record. Impression: Chest pain, epigastric pain Increase fluids Pepcid once daily Follow-up with a primary care physician within the next 2 days Follow-up with a GI doctor within the next 2 days Follow-up with a technical engineer within the next 2 days Return immediately if symptoms worsen persist or if new concerning symptoms develop Reassessment Condition: Re-examined, Improved - Lab Interpretations Lab Results: D-Dimer, Quantitative 263 ng/mlDDU (0-243) H 05/20/18 23:18 Troponin I < 0.01 ng/mL 05/20/18 23:18 Total Bilirubin 0.3 mg/dL (0.2-1.3) 05/20/18 23:18 AST 27 U/L (17-59) 05/20/18 23:18 ALT 22 U/L (7-56) 05/20/18 23:18 Alkaline Phosphatase 85 U/L (38-126) 05/20/18 23:18 Total Protein 7.5 g/dL (5.8-8.3) 05/20/18 23:18 Albumin 3.9 g/dL (3.0-4.8) 05/20/18 23:18 Globulin 3.6 gm/dL 05/20/18 23:18 Albumin/Globulin Ratio 1.1 (1.1-1.8) 05/20/18 23:18 Lipase 56 U/L (23-300) 05/20/18 23:18 Urine Color Yellow (YELLOW) 05/20/18 23:41 Urine Appearance Clear (CLEAR) 05/20/18 23:41 Urine pH 6.5 (4.7-8.0) 05/20/18 23:41 Ur Specific [place] 1.025 (1.005-1.035) 05/20/18 23:41 Urine Protein Trace mg/dL (<30 mg/dL) H 05/20/18 23:41 Urine Glucose (UA) Negative mg/dL (NEGATIVE) 05/20/18 23:41 Urine Ketones Trace mg/dL (NEGATIVE) H 05/20/18 23:41 Urine Blood Negative (NEGATIVE) 05/20/18 23:41 Urine Nitrate Negative (NEGATIVE) 05/20/18 23:41 Urine Bilirubin Negative (NEGATIVE) 05/20/18 23:41 Urine Urobilinogen 0.2 E.U./dL (<1 E.U./dL) 05/20/18 23:41 Ur Leukocyte Esterase Negative [place]/uL (NEGATIVE) 05/20/18 23:41 I have reviewed the lab results: Yes - RAD Interpretation Radiology Orders: 05/20/18 22:14 CHEST PORTABLE [RAD] Stat 05/21/18 00:02 ANGIO CHEST PE PROTOCOL [CT] Stat Cemetery Counselor: Radiologist - EKG Interpretation Interpreted by ED Physician: Yes Type: 12 lead EKG - Medication Orders Current Medication Orders: Discontinued Medications Pantoprazole Sodium (Protonix Inj) 40 mg IVP STAT STA Stop: 05/21/18 00:02 <Gely Aldridge - Last Filed: 05/21/18 02:14> - PA / [employer] / Resident Statement / has reviewed & agrees with the documentation as recorded. / has examined the patient and agrees with the treatment plan. <Sp Nelson - Last Filed: 05/21/18 01:42> - Scribe Statement The provider has reviewed the documentation as recorded by the Jaspreet Carrington Provider Scribe Attestation: All medical record entries made by the Robinaibmagen were at my direction and personally dictated by me. I have reviewed the chart and agree that the record accurately reflects my personal performance of the history, physical exam, medical decision making, and the department course for this patient. I have also personally directed, reviewed, and agree with the discharge instructions and disposition. <Gely Aldridge - Last Filed: 05/21/18 02:14> Disposition/Present on Arrival <Sp Nelson - Last Filed: 05/21/18 01:42> - Present on Arrival Any Indicators Present on Arrival: No History of DVT/PE: No History of Uncontrolled Diabetes: No Urinary Catheter: No History of Decub. Ulcer: No History Surgical Site Infection Following: None - Disposition Have Diagnosis and Disposition been Completed?: Yes Disposition Time: 01:15 Patient Plan: Discharge <Gely Aldridge - Last Filed: 05/21/18 02:14> - Disposition Diagnosis: Epigastric pain, Chest pain Disposition: HOME/ ROUTINE Patient Problems: Current Active Problems Problem Status Onset Chest pain Acute Epigastric pain Acute Condition: GOOD Discharge Instructions (ExitCare): Chest Pain (ED) Additional Instructions: Increase fluids Pepcid once daily Follow-up with a primary care physician within the next 2 days Follow-up with a GI doctor within the next 2 days Follow-up with a technical engineer within the next 2 days Return immediately if symptoms worsen persist or if new concerning symptoms develop Prescriptions: Famotidine [Pepcid] 20 mg PO DAILY #30 tab Referrals: Damion Lucero DO [Staff Provider] - Follow up with primary Cristobal Knight MD [Staff Provider] - Follow up with primary Moe Dooley MD [Staff Provider] - Follow up with primary Freda Rodas MD [Medical Doctor] - Follow up with primary [facility] [Outside] - Follow up with primary Forms: [employer] ([place])
[2018-05-21 02:09] VITALS: BP 114/61; PULSE 97; RESP 18
[2018-05-21 03:11] VITALS: O2SAT 100
--- NOTE | 2018-05-21 09:00 | RAD ---
Date of service: 05/20/2018 HISTORY: chest pain/epigastric pain COMPARISON: 07/18/2016 TECHNIQUE: 1 view obtained. FINDINGS: LUNGS: No active pulmonary disease. PLEURA: No significant pleural effusion identified, no pneumothorax apparent. CARDIOVASCULAR: No aortic atherosclerotic calcification present. Normal cardiac size. No pulmonary vascular congestion. OSSEOUS STRUCTURES: No significant abnormalities. VISUALIZED UPPER ABDOMEN: Normal. OTHER FINDINGS: None. IMPRESSION: No active disease.
--- NOTE | 2018-05-21 09:08 | CT ---
Date of service: 05/21/2018 CTA chest PE protocol Indication: Chest pain Technique: Contiguous axial images were obtained through the chest with intravenous contrast enhancement. Sagittal and coronal reconstructions were generated and reviewed. This CT exam was performed using 1 or more of the following dose reduction techniques: Automated exposure control, adjustment of the MAA and/or kV according to patient size, and/or use of iterative reconstruction technique. IV contrast: 100 mL Omnipaque 350 IV Radiation dose (DLP): 616.16 MGy-cm. Comparison: Chest xray performed 05/20/18 Findings: Visualized portions of the inferior thyroid gland appear unremarkable. Hazy soft tissue within the anterior mediastinum suspected to reflect residual thymic tissue. The mediastinal and hilar vascular structures appear within normal limits. The heart appears within normal limits of size. There is suboptimal opacification of the pulmonary arteries due to missed bolus of the intravenous contrast limiting evaluation for pulmonary embolus. Given this limitation, there are no visible intraluminal filling defects within the central pulmonary arteries to suggest central pulmonary embolism. No large central or segmental pulmonary embolus evident. No focal consolidation. No pleural effusion. No pneumothorax. No suspicious pulmonary nodules measuring greater than 5 mm. Limited visualized portions of the upper abdomen: 16 mm probable splenule. Bilateral gynecomastia. No acute osseous abnormality is detected. Impression: There is suboptimal opacification of the pulmonary arteries due to missed bolus of the intravenous contrast limiting evaluation for pulmonary embolus. Given this limitation, there are no visible intraluminal filling defects within the central pulmonary arteries to suggest central pulmonary embolism. No large central or segmental pulmonary embolus evident. Preliminary impression was provided by [employer].
--- NOTE | 2018-05-21 21:00 | CARD ---
APPROVED REPORT Date of service: 05/20/2018 EKG Measurement Heart [id number] <Conclusion> Normal sinus rhythm Normal ECG
== END 2018-05-21 02:15 | disposition home or self-care (01) ==
LOC: ED 21:17
DX: R10.13 Epigastric pain (principal); R07.9 Chest pain, unspecified
CPT/HCPCS: 71045; 71275; 80053; 81001; 82550; 83615; 83690; 84484; 85025; 85378; 93005; 96374; 99283; C9113; Q9967